=== PATIENT | male | born 1965 | race Caucasian/White ===

== ENCOUNTER 2021-05-27 05:21 | Emergency (ER) | payer BC ==
[~2021-05-27] VITALS: Ht 182.9 cm; Wt 97.3 kg
[2021-05-27] MEDS ORDERED: LISI-378 (05:34)
[2021-05-27] MEDS ORDERED: IV NORMAL SALINE 1,000ML 1,000 ML IV SCH (05:45)
--- NOTE | 2021-05-27 05:50 | EKG ---
[address] [address] Test Date: 2021-05-27 Test Time: 05:37:48 Pat Name: NICHOLAS HERNANDEZ Department: Room: Gender: M [employer] Vehicle [employer]r: LASHANDA : 1965 Requested By: NICHOLAS TIMMONS Order Number: [id number] Reading MD: William Ramirez MD Measurements Intervals [place] Rate: 94 P: 53 HI: 150 QRS: 38 QRSD: 94 T: 0 QT: 328 QTc: 415 Interpretive Statements SINUS RHYTHM Electronically Signed On 06-04-2021 7:36:51 CDT by William Ramirez MD
[2021-05-27] MEDS ORDERED: IOHEXOL 300 MG/ML 75 ML VIAL. IV ONE (06:00)
[2021-05-27] MEDS ORDERED: CONTRAST GIVEN. MC PRN (06:00)
[2021-05-27] MEDS ORDERED: LABETALOL 20 MG/4 ML DISP.SYRIN. IVP ONE (06:00)
[2021-05-27 06:02] LABS: BASO % 0 % (0-3); EOS # 0.1 x10^3/uL (0.0-0.7); EOS % 1 % (0-3); HEMOGLOBIN 16.3 g/dL (13.0-17.5); LYMPH # 1.4 x10^3/uL (1.0-4.8); LYMPH % 22 % (24-48); MEAN CORPUSCULAR HEMOGLOBIN 30 pg (25-35); MEAN CORPUSCULAR HGB CONC 34 g/dL (31-37); MEAN CORPUSCULAR VOLUME 89 fL (79-100); MONO # 0.6 x10^3/uL (0.0-1.1); MONO % 9 % (0-9); NEUT # 4.4 x10^3uL (1.8-7.7); NEUT % 68 % (31-73); PLATELET COUNT 254 x10^3/uL (140-400); RED BLOOD COUNT 5.39 x10^6/uL (4.30-5.70); RED CELL DISTRIBUTION WIDTH 13.8 % (11.5-14.5); WHITE BLOOD COUNT 6.5 x10^3/uL (4.0-11.0)
--- NOTE | 2021-05-27 06:08 | PHYS DOC ---
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 Pt states that yesterday at 1300 he started having some mild left sided weakness and felt "funny" so he decided to rest. He states that he continued to have symptoms and when he would walk his left leg felt "heavy". He denies any other symptoms including headache or chest pain. He woke up this morning and noticed some mild left sided facial drooping and continued left sided weakness. He has a history or hypertension and is not currently on any blood thinners. (NICHOLAS TIMMONS DO) Review of Systems: Review of Systems: Constitutional: Denies fever or chills Eyes: Denies redness or eye pain HENT: Denies nasal congestion or sore throat Respiratory: Denies cough or shortness of breath Cardiovascular: Denies chest pain or palpitations GI: Denies abdominal pain, nausea, or vomiting : Denies dysuria or hematuria Musculoskeletal: Denies back pain or joint pain Integument: Denies rash or skin lesions Neurologic: Denies headache; reports left sided weakness and left sided facial droop Complete systems were reviewed and found to be within normal limits, except as documented in this note. (NICHOLAS TIMMONS DO) Current Medications: Current Meds: Current Medications Medications (Trade) Dose Ordered Sig/Brittani Start Time Stop Time Status Last Admin Dose Admin Info (Do NOT chart on this entry -- for MONITORING) 1 each PRN DAILY PRN 05/27/21 06:00 05/29/21 05:59 Iohexol (Omnipaque 300 Mg/ml) 75 ml 1X ONCE 05/27/21 06:00 05/27/21 06:01 Labetalol HCl (Normodyne) 10 mg 1X ONCE 05/27/21 06:00 05/27/21 06:01 Sodium Chloride 1,000 ml @ 1,000 mls/hr Q1H 05/27/21 05:45 05/27/21 06:44 (NICHOLAS TIMMONS DO) Allergies: Allergies: Allergies Coded Allergies Type Severity Reaction Last Updated Verified No Known Drug Allergies 05/27/21 No (NICHOLAS TIMMONS DO) Physical Exam: PE: Constitutional: Well developed, well nourished, no acute distress, non-toxic appearance HENT: Normocephalic, atraumatic Eyes: PERRL, EOMI, conjunctiva normal, no discharge Neck: Normal range of motion, no tenderness, supple Lungs & Thorax: No respiratory distress, equal chest rise and fall Abdomen: Soft, no tenderness Skin: Warm, dry, no erythema, no rash Back: No tenderness, no CVA tenderness Extremities: No tenderness, ROM intact, no edema Neurologic: Alert and oriented X 3, LLE drift without touching, left mild facial droop, past pointing noted with left arm Psychologic: Affect normal, judgment normal (NICHOLAS TIMMONS DO) Current Patient Data: Labs: Laboratory Tests Test 05/27/21 05:30 Glucose (Fingerstick) 127 mg/dL (70-99) H Vital Signs: Vital Signs Date Time Temp Pulse Resp B/P (MAP) Pulse Ox O2 Delivery O2 Flow Rate FiO2 05/27/21 05:34 92 18 208/113 (144) 98 Room Air (NICHOLAS TIMMONS DO) EKG: EKG: @ 0537 sinus rhythm 53 bpm, normal axis, normal ST segments RR 637ms, AL 150ms, QRS 94ms, QT 328ms, [id number] (NICHOLAS TIMMONS DO) Radiology/Procedures: Radiology/Procedures: PROCEDURE: CT CODE STROKE HEAD WO CT STROKE HEAD W/O History: Left-sided weakness. Comparison: None. Technique: Noncontrast CT imaging was performed of the head. Findings: No intracranial hemorrhage. No mass effect. No hydrocephalus. No evidence of acute territorial infarction. Imaged orbits are unremarkable. Imaged paranasal sinuses and mastoid air cells are clear. The scalp and calvarium are unremarkable. Impression: 1. No acute intracranial abnormality. Findings discussed with NICHOLAS TIMMONS DO at 05/27/2021 6:06 AM. FOR INTERNAL CODING PURPOSES RESULT CODE: (C) ----- Exposure: One or more of the following individualized dose reduction techniques were utilized for this examination: 1. Automated exposure control 2. Adjustment of the mA and/or kV according to patient size 3. Use of iterative reconstruction technique. Electronically signed by: Félix Yi MD (05/27/2021 6:06 AM) [facility] (NICHOLAS TIMMONS DO) Heart Score: C/O Chest Pain: N/A (NICHOLAS TIMMONS DO) Course & Med Decision Making: Course & Med Decision Making Pertinent Labs and Imaging studies reviewed. (See chart for details) Patient presents with report of left-sided weakness. Last known well at approximately [address] head without acute process. CTA head and neck pending. Chest x-ray also pending. EKG stable. Labs obtained and pending. Patient outside window of time for TPA. Aspirin therefore ordered. Hypertension addressed. [id number]-signout given to Dr. Neff for further evaluation and final disposition. Discussed current findings and plan with patient and family, who acknowledge understanding and agreement. (NICHOLAS TIMMONS DO) Course & Med Decision Making Patient care handed off to me at checkout pending CTA. Patient awake alert in no acute distress. Vital signs notable for hypertension. Physical exam noted above. Laboratory analysis not concerning. EKG and troponin nonconcerning. CT of the head nonconcerning. CTA of the head and neck with no significant stenosis occlusion or aneurysm but did show some degenerative disease of cervical spine suggestive of radiculopathy. Recommend MRI. Discussed all findings with family. Discussed symptom management at home. Advised to follow- up this morning with primary care physician to discuss ED visit, symptom management at home and need for MRI. Gave return precautions to the ED. Family grateful, verbalized understanding and agreed with plan of discharge. (JEMMA NEFF MD) Dragon Disclaimer: Dragon Disclaimer: This electronic medical record was generated, in whole or in part, using a voice recognition dictation system. (NICHOLAS TIMMONS DO) Departure Departure: Impression: Primary Impression: Left-sided weakness Additional Impression: Hypertensive urgency Referrals: JUWAN BREAUX MD (PCP) NIHSS - ED NIH Stroke Scale: NIH Stroke Scale Response (Comments) Value Level of Consciousness: 0 Alert/Responsive 0 LOC Questions: 0 Answers both correctly 0 LOC Commands: 0 Performs both tasks 0 Best Gaze: 0 Normal 0 Visual: 0 No visual loss 0 Facial Palsy: 1 Minor paralysis 1 Motor - Left Arm 0 No drift 0 Motor - Right Arm 0 No drift 0 Motor - Left Leg 1 Drift but can hold 1 Motor: Right Leg 0 No drift 0 Limb Ataxia: 1 One limb 1 Sensory: 0 No loss 0 Best Language: 0 Normal 0 Dysathria: 0 Normal 0 Extinction and Inattention: 0 Normal 0 Total 3 Critical Care Time Critical care time was 30 minutes which includes time at bedside, spent in discussion of patient's care with specialists and/or family members, with interpretation of laboratory and/or radiological studies and is exclusive of procedures. (NICHOLAS TIMMONS DO) NICHOLAS TIMMONS DO May 27, 2021 06:08 JEMMA NEFF MD May 27, 2021 06:49
--- NOTE | 2021-05-27 06:09 | RAD ---
CT STROKE HEAD W/O History: Left-sided weakness. Comparison: None. Technique: Noncontrast CT imaging was performed of the head. Findings: No intracranial hemorrhage. No mass effect. No hydrocephalus. No evidence of acute territorial infar ction. Imaged orbits are unremarkable. Imaged paranasal sinuses and mastoid air cells are clear. The scalp a nd calvarium are unremarkable. Impression: 1. No acute intracranial abnormality. Findings discussed with NICHOLAS TIMMONS DO at 05/27/2021 6:06 AM. FOR INTERNAL CODING PURPOSES RESULT CODE: (C) ----- Exposure: One or more of the following individualized dose reduction techniques were utilized for thi s examination: 1. Automated exposure control 2. Adjustment of the mA and/or kV according to patient size 3. Use of iterative reconstruction technique. Electronically signed by: Félix Yi MD (05/27/2021 6:06 AM) [facility]
[2021-05-27 06:14] LABS: CALCIUM 8.9 mg/dL (8.5-10.1); CREATININE 1.1 mg/dL (0.7-1.3); GFR 69.5; POTASSIUM 3.7 mmol/L (3.5-5.1)
[2021-05-27] MEDS ORDERED: ASPIRIN ENTERIC COATED 325 MG TABLET.DR. PO ONE (06:15)
--- NOTE | 2021-05-27 06:38 | RAD ---
CTA HEAD AND NECK W/WO CONTRAST History: Left sided weakness Technique: After bolus of intravenous contrast, volumetric CT data acquisition was acquired of the he ad and neck. Multiplanar reconstruction images to include MIP and 3-D reconstruction images are submi tted. Any determination of stenosis is based on NASCET criteria. Comparison: CT head 05/27/2020 Findings: Angiogram neck: Common carotid arteries: No stenosis, occlusion or dissection. Internal carotid arteries: No stenosis, occlusion or dissection. External carotid arteries: Patent Vertebral arteries: No stenosis, occlusion or dissection. Angiogram head: ICA: No stenosis, occlusion or aneurysm. MCA: No stenosis, occlusion or aneurysm. ROGERS: No stenosis, occlusion or aneurysm. TALLOW REFINER: No stenosis, occlusion or aneurysm. Basilar artery: No stenosis, occlusion or aneurysm. Distal vertebral arteries: No stenosis, occlusion or aneurysm. Other: Imaged lung apices are unremarkable. Absent or hypoplastic left thyroid gland. Reversal the normal cervical lordosis with ankylosis of the right C3-C4 cervical facets. Moderate rig ht foraminal stenosis at C3-C4. Moderate left foraminal stenosis at C4-C5. Degenerative disc disease in the cervical spine greatest at C4-C5. Impression: 1. No significant arterial stenosis, occlusion or aneurysm within the head or neck. 2. Degenerative disease in the cervical spine with foraminal stenoses as above. If there is concern for radiculopathy recommend cervical spine MRI. Findings discussed with Dr. Espinoza at 05/27/2021 6:32 AM. FOR INTERNAL CODING PURPOSES RESULT CODE: (C) Exposure: One or more of the following individualized dose reduction techniques were utilized for thi s examination: 1. Automated exposure control 2. Adjustment of the mA and/or kV according to patient size 3. Use of iterative reconstruction technique. Electronically signed by: Félix Yi MD (05/27/2021 6:36 AM) [facility]
[2021-05-27 06:41] LABS: ALBUMIN/GLOBULIN RATIO 1.4 (1.0-1.7); MAGNESIUM 2.4 mg/dL (1.8-2.4); TOTAL BILIRUBIN 0.3 mg/dL (0.2-1.0); TOTAL PROTEIN 6.9 g/dL (6.4-8.2)
[2021-05-27 06:55] VITALS: BP 156/104
--- NOTE | 2021-05-27 07:07 | RAD ---
AP chest. HISTORY: Left-sided weakness AP view was taken of the chest. Lungs are free of infiltrates. Heart is normal in size. There is no e ffusion. IMPRESSION: 1. No acute chest disease. Electronically signed by: Yao Martinez MD (05/27/2021 7:04 AM) [facility]
== END 2021-05-27 07:00 | disposition home or self-care (01) ==
LOC: ER 05:21
DX: I16.0 Hypertensive urgency (principal); R53.1 Weakness
CPT/HCPCS: 36415; 70450; 70496; 70498; 71045; 80053; 82553; 82947; 83735; 84484; 85025; 85610; 85730; 93005; 96361; 96374; 99285; J3490; J7030; Q9967